=== PATIENT | male | born 1980 | race Caucasian/White ===

== ENCOUNTER 2017-06-12 08:53 | Emergency (ER) | payer OTHER ==
[~2017-06-12] VITALS: Ht 182.9 cm; Wt 88.6 kg
[2017-06-12] MEDS ORDERED: BENA25CA4 PO (09:02)
[2017-06-12] MEDS ORDERED: FAMOTIDINE INJ 20MG/2ML VIAL (S0028) IVP ONE (09:15)
[2017-06-12] MEDS ORDERED: diphenhydrAMINE INJ 50MG/ML VIAL (J1200) IV ONE (09:15)
[2017-06-12] MEDS ORDERED: methylPREDNISolone INJ 125 MG/2 ML VIAL (J2930) IV ONE (09:15)
[2017-06-12] MEDS ORDERED: MEDR4PAK PO (11:32)
[2017-06-12 12:10] VITALS: BP 131/81
[2017-06-12] MEDS ORDERED: EPIP0.3I2 IJ (12:14)
== END 2017-06-12 12:14 | disposition home or self-care (01) ==
LOC: M ED 08:53
DX: T62.8X1A Toxic effect of other specified noxious substances eaten as food, accidental (unintentional), initial encounter (principal); Y92.9 Unspecified place or not applicable; Y93.9 Activity, unspecified; Z79.899 Other long term (current) drug therapy
CPT/HCPCS: 93041; 94760; 96374; 96375; 99285; J1200; J2930

== ENCOUNTER → 2017-07-31 | Outpatient (CLI) | payer OTHER ==
[2017-07-31 13:50] LABS: HEMATOCRIT 46.7 % (42.0-52.0); HEMOGLOBIN 15.9 g/dl (14.0-18.0); MEAN CORPUSCULAR HEMOGLOBIN 29.8 pg (27.0-33.0); MEAN CORPUSCULAR VOLUME 87.5 fl (80.0-96.0); PLATELET COUNT, AUTOMATED 295 10^3/uL (150-450); RED BLOOD COUNT 5.34 10^6/uL (4.30-6.10); RED CELL DISTRIBUTION WIDTH 12.2 % (11.5-14.5); WHITE BLOOD COUNT 5.5 10^3/uL (4.0-10.0)
[2017-07-31 14:21] LABS: ERYTHROCYTE SEDIMENTATION RATE 8 mm/hr (0-15)
[2017-07-31 14:26] LABS: ALBUMIN/GLOBULIN RATIO 1.14 (1.00-1.93); ALKALINE PHOSPHATASE 68 U/L (45-117); ALT/SGPT 33 U/L (12-78); ANION GAP 6 MEQ/L (8-16); AST/SGOT 20 U/L (7-37); BILIRUBIN,TOTAL 0.4 MG/DL (0.2-1.0); BLOOD UREA NITROGEN 16 MG/DL (7-18); CARBON DIOXIDE LEVEL 29 MEQ/L (21-32); CHLORIDE LEVEL 107 MEQ/L (98-107); COMPLEMENT C3 137 MG/DL (90-180); COMPLEMENT C4 22.6 MG/DL (10-40); CREATININE FOR GFR 1.02 MG/DL (0.70-1.30); GLOMERULAR FILTRATION RATE > 60.0 (>60); GLUCOSE, FASTING 97 MG/DL (70-100); POTASSIUM SERUM 4.6 MEQ/L (3.5-5.1); RHEUMATOID FACTOR QUANT < 10.0 IU/ML (0-15.0); SODIUM LEVEL 142 MEQ/L (136-145); THYROID STIMULATING HORMONE 0.937 uIU/ML (0.358-3.740); THYROXINE (T4) 8.4 UG/DL (4.5-12.0); TOTAL PROTEIN 7.5 GM/DL (6.4-8.2)
[2017-07-31 14:29] LABS: CONTROL LINE HPYORI INT CTR LINE PRESENT; H PYLORI QUALITATIVE IgG NEGATIVE (NEGATIVE)
[2017-07-31 14:30] LABS: THYROGLOBULIN ANTIBODY < 15.0 U/ML (<60.0); THYROID PEROXIDASE ANTIBODY < 28.0 U/ML (<60.0)
[2017-07-31 14:32] LABS: TOTAL T3 101.2 NG/DL (60.0-181.0)
== END ==
LOC: M SMT 09:24
DX: T78.2XXA Anaphylactic shock, unspecified, initial encounter (principal); L50.1 Idiopathic urticaria
CPT/HCPCS: 84443

== ENCOUNTER 2017-09-25 14:08 | Outpatient (RCR) | payer OTHER | END 2017-09-28 | LOC: M PT 14:08 | DX: Z51.89 Encounter for other specified aftercare (principal); M67.921 Unspecified disorder of synovium and tendon, right upper arm | CPT/HCPCS: 97162 ==

== ENCOUNTER → 2018-09-10 | Outpatient (CLI) | payer OTHER ==
[~2018-09-10] MED LIST: BENA25CA4 PO; EPIP0.3I2 IJ; MEDR4PAK PO
== END ==
LOC: M OUTALCOH 07:55
PROVIDERS: ATTEND Psychiatry & Neurology Psychiatry
DX: Z03.89 Encounter for observation for other suspected diseases and conditions ruled out (principal)

== ENCOUNTER 2018-09-25 15:55 | Outpatient (RCR) | payer OTHER | END 2018-09-28 | LOC: M OUTALCOH 15:55 | PROVIDERS: ATTEND Psychiatry & Neurology Psychiatry | DX: F10.10 Alcohol abuse, uncomplicated (principal); Z72.0 Tobacco use ==

== ENCOUNTER → 2018-10-28 | Outpatient (RCR) | payer OTHER | LOC: M OUTALCOH 09-30 15:31 | PROVIDERS: ATTEND Psychiatry & Neurology Psychiatry | DX: F10.10 Alcohol abuse, uncomplicated (principal); Z72.0 Tobacco use ==

== ENCOUNTER 2018-11-25 07:50 | Outpatient (RCR) | payer OTHER | END 2018-11-28 | LOC: M OUTALCOH 07:50 | PROVIDERS: ATTEND Psychiatry & Neurology Psychiatry | DX: F10.10 Alcohol abuse, uncomplicated (principal); Z72.0 Tobacco use ==

== ENCOUNTER 2018-12-02 15:48 | Outpatient (RCR) | payer OTHER | END 2018-12-28 | LOC: M OUTALCOH 15:48 | PROVIDERS: ATTEND Psychiatry & Neurology Psychiatry | DX: F10.10 Alcohol abuse, uncomplicated (principal); Z72.0 Tobacco use ==

== ENCOUNTER 2019-09-28 07:54 | Emergency (ER) | payer OTHER ==
[~2019-09-28] VITALS: Ht 182.9 cm; Wt 93.0 kg
[2019-09-28] MEDS ORDERED: ALL10TAB29 (08:00)
[2019-09-28] MEDS ORDERED: NAPR220C14 PO (08:10)
[2019-09-28] MEDS ORDERED: ACET-683 PO (08:10)
[2019-09-28] MEDS ORDERED: IBUP-1022 PO (09:13)
[2019-09-28] MEDS ORDERED: CYCL10TA PO (09:13)
[2019-09-28 09:29] VITALS: BP 152/78
--- NOTE | 2019-09-28 09:58 | REP ---
PELVIS LEFT HIP: THREE VIEWS. HISTORY: Pain times 1 week. Comparison left femur radiographs June 19, 2011 and a left hip radiograph the same date. FINDINGS: AP view of the pelvis shows an intact bony pelvic ring. No sacral or pelvic fracture is seen. Femoral heads are smooth and rounded and hip joint spaces are preserved and unchanged. There are two small accessory ossicles or soft tissue calcifications adjacent to the greater trochanter. These were not apparent previously. There are well corticated and chronic however. 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 No acute bony abnormality. IMPRESSION: Peritrochanteric soft tissue calcifications may reflect calcific tendonitis or bursitis. No acute bony abnormality seen. Electronically Signed by Crow Hernandez MD 09/28/2019 03:33 P
== END 2019-09-28 09:30 | disposition home or self-care (01) ==
LOC: M ED 07:54
DX: M70.72 Other bursitis of hip, left hip (principal); Z88.0 Allergy status to penicillin

== ENCOUNTER 2020-01-14 11:49 | Emergency (ER) | payer OTHER ==
[~2020-01-14] VITALS: Ht 182.9 cm; Wt 91.7 kg
[~2020-01-14 11:49] MED LIST changes: +ACET-683 PO; +CETI-24; +CYCL-707 PO; +IBUP-1022 PO; +NAPR220C14 PO
[2020-01-14] MEDS ORDERED: CLINDAMYCIN 900 MG in IV 1 EA IV ONE (13:00)
[2020-01-14] MEDS ORDERED: LIDOCAINE 1% MDV 20ML VIAL SC ONE (13:00)
[2020-01-14] MEDS ORDERED: CLEO300C2 PO (14:31)
--- NOTE | 2020-01-14 14:53 | REP ---
LEFT SECOND DIGIT, FOUR VIEWS: Four views of the left 2nd digit performed. There is no acute fracture, dislocation or intrinsic bone disease. There soft tissue disruption at the level of the proximal interphalangeal joint anteriorly with no evidence of radiopaque foreign body in that region. Electronically Signed by Stanton Phillip MD 01/17/2020 11:42 P
[2020-01-14 15:06] VITALS: BP 129/81
== END 2020-01-14 15:09 | disposition home or self-care (01) ==
LOC: M ED 11:49
DX: S61.211A Laceration without foreign body of left index finger without damage to nail, initial encounter (principal); S61.213A Laceration without foreign body of left middle finger without damage to nail, initial encounter; W27.0XXA Contact with workbench tool, initial encounter; Y92.009 Unspecified place in unspecified non-institutional (private) residence as the place of occurrence of the external cause; Y93.9 Activity, unspecified; Y99.8 Other external cause status; Z88.0 Allergy status to penicillin; Z79.899 Other long term (current) drug therapy

== ENCOUNTER → 2020-05-02 | Outpatient (REF) | payer OTHER ==
[~2020-05-02] MED LIST changes: +CLEO300C2 PO
== END ==
LOC: CANPREREF → M SFHCPLAZ 08:43
PROVIDERS: ATTEND Internal Medicine
DX: Z13.220 Encounter for screening for lipoid disorders (principal); Z13.1 Encounter for screening for diabetes mellitus; I10 Essential (primary) hypertension; Z53.9 Procedure and treatment not carried out, unspecified reason

== ENCOUNTER → 2020-05-05 | Outpatient (CLI) | payer OTHER | LOC: M RAD 17:47 | PROVIDERS: ATTEND Physician Assistant Medical | DX: S66.829A Laceration of other specified muscles, fascia and tendons at wrist and hand level, unspecified hand, initial encounter (principal); W18.30XA Fall on same level, unspecified, initial encounter; Y92.9 Unspecified place or not applicable ==

== ENCOUNTER → 2020-05-13 | Outpatient (REF) | payer OTHER ==
[2020-05-13 10:54] LABS: HEMATOCRIT 46.8 % (42.0-52.0); HEMOGLOBIN 15.9 g/dl (13.5-17.5); MEAN CORPUSCULAR HEMOGLOBIN 29.5 pg (27.0-33.0); MEAN CORPUSCULAR VOLUME 86.8 fl (80.0-96.0); PLATELET COUNT, AUTOMATED 295 10^3/uL (150-450); RED BLOOD COUNT 5.39 10^6/uL (4.30-6.10)
[2020-05-13 11:11] LABS: HEMOGLOBIN A1c 5.2 %
[2020-05-13 11:30] LABS: ALBUMIN 4.2 GM/DL (3.2-5.2); ALT/SGPT 53 U/L (12-78); BILIRUBIN,TOTAL 0.7 MG/DL (0.2-1.0); BLOOD UREA NITROGEN 13 MG/DL (7-18); CALCIUM LEVEL 9.7 MG/DL (8.5-10.1); CARBON DIOXIDE LEVEL 27 MEQ/L (21-32); CHLORIDE LEVEL 106 MEQ/L (98-107); CHOLESTEROL LEVEL 245 MG/DL (<200); CHOLESTEROL RISK RATIO 5.104 (<5); CREATININE FOR GFR 0.96 MG/DL (0.70-1.30); GLOMERULAR FILTRATION RATE > 60.0 (>60); GLUCOSE, FASTING 90 MG/DL (70-100); HDL CHOLESTEROL 48 MG/DL (>40); LDL CHOLESTEROL 163 MG/DL (<100); NON-HDL-C 197 MG/DL; POTASSIUM SERUM 4.3 MEQ/L (3.5-5.1); SODIUM LEVEL 140 MEQ/L (136-145); TRIGLYCERIDES LEVEL 172 MG/DL (<150)
== END ==
LOC: M SFHCPLAZ 09:13
PROVIDERS: ATTEND Internal Medicine
DX: Z13.220 Encounter for screening for lipoid disorders (principal); Z13.1 Encounter for screening for diabetes mellitus; I10 Essential (primary) hypertension

== ENCOUNTER → 2020-05-13 | Outpatient (CLI) | payer OTHER ==
--- NOTE | 2020-05-13 13:38 | REP ---
INDICATION: LACERATION OF HAND. Severed tendons. Status post left hand tendon repair. COMPARISON: Comparison left index finger radiographs from January 14, 2020 showing a laceration of the palm are aspect of the index finger near the PIP joint.. TECHNIQUE: Axial, coronal and sagittal imaging planes are utilized for MRI of the left hand. T1 and T2 weighted scans are included with without fat saturation. FINDINGS: PIP joint is held in mild flexion compared to the other joints. The flexor tendon is thickened and heterogeneous at the volar aspect of the PIP joint of the index finger. It is also positioned 3-4 mm in a palmar direction from the under surface of the bony elements of the PIP joint of the index finger. On T1 weighted axial and sagittal images of the tendon appear has a discontinuous heterogeneous and disorganized appearance. It is more contiguous and a little smoother on T2 weighted scans where low take signal intensity is seen in continuity. There is no retracted component seen on the T2 weighted scan. There is mild thickening of the same segment of the flexor tendon at the PIP joint of the long finger as well. It is not heterogeneous. There is micrometallic artifact in the volar soft tissues at the PIP joint of the index finger. This is felt to be the site of tendon repair. There is no evidence of carmen foreign body. IMPRESSION: Heterogeneous T1 signal intensity and possible discontinuity or partial discontinuity of the flexor tendon of the index finger at the PIP joint on T1 weighted scans. Fusiform enlargement is seen in this tendon at the tendon repair site on T2 weighted images. On the basis of the T2 weighted scans, I do not believe there is carmen discontinuity of the flexor tendon. Most consistent with expected postsurgical changes. <Electronically signed by Curt Hernandez > 05/13/20 [id number]
== END ==
LOC: M PLARAD 07:29
PROVIDERS: ATTEND Physician Assistant Medical
DX: S66.929A Laceration of unspecified muscle, fascia and tendon at wrist and hand level, unspecified hand, initial encounter (principal); X58.XXXA Exposure to other specified factors, initial encounter; Y92.9 Unspecified place or not applicable

== ENCOUNTER → 2020-08-05 | Outpatient (REF) | payer OTHER | LOC: M SMT 13:29 | PROVIDERS: ATTEND Urology | DX: Z30.2 Encounter for sterilization (principal) ==

== ENCOUNTER → 2022-07-26 | Outpatient (CLI) | payer OTHER | LOC: M RAD 13:53 | PROVIDERS: ATTEND Student in an Organized Health Care Education/Training Program | DX: N50.812 Left testicular pain (principal) ==

== ENCOUNTER → 2022-07-27 | Outpatient (CLI) | payer OTHER ==
[2022-07-27 11:08] LABS: ALKALINE PHOSPHATASE 63 U/L (46-116); ALT/SGPT 42 U/L (7.0-40); AST/SGOT 25 U/L (<34); BILIRUBIN,TOTAL 0.7 MG/DL (0.3-1.2); BLOOD UREA NITROGEN 13 MG/DL (9-23); CALCIUM LEVEL 9.5 MG/DL (8.5-10.1); CARBON DIOXIDE LEVEL 30 MMOL/L (20-31); CHLORIDE LEVEL 104 MMOL/L (98-107); CHOLESTEROL LEVEL 219 MG/DL (<200); CHOLESTEROL RISK RATIO 4.94 (<5); GLOMERULAR FILTRATION RATE > 60.0 (>60); GLUCOSE, FASTING 96 MG/DL (60-100); HDL CHOLESTEROL 44.3 MG/DL (>40); LDL CHOLESTEROL 154.1 MG/DL (<100); NON-HDL-C 175 MG/DL; POTASSIUM SERUM 4.4 MMOL/L (3.5-5.1); SODIUM LEVEL 139 MMOL/L (136-145); TOTAL PROTEIN 7.5 G/DL (5.7-8.2); TRIGLYCERIDES LEVEL 103 MG/DL (<150)
== END ==
LOC: M PLALAB 07:56
PROVIDERS: ATTEND Student in an Organized Health Care Education/Training Program
DX: Z13.220 Encounter for screening for lipoid disorders (principal); I10 Essential (primary) hypertension

== ENCOUNTER → 2023-03-14 | Outpatient (CLI) | payer OTHER | LOC: M SLEEP 20:00 | PROVIDERS: ATTEND Nurse Practitioner Family | DX: R06.83 Snoring (principal) ==

== ENCOUNTER → 2023-04-30 | Outpatient (CLI) | payer OTHER ==
[2023-04-30 12:09] LABS: BLOOD UREA NITROGEN 14 MG/DL (9-23); CALCIUM LEVEL 9.7 MG/DL (8.5-10.1); CARBON DIOXIDE LEVEL 27 MMOL/L (20-31); CHLORIDE LEVEL 103 MMOL/L (98-107); GLOMERULAR FILTRATION RATE > 60.0 (>60); GLUCOSE, FASTING 100 MG/DL (60-100); POTASSIUM SERUM 4.5 MMOL/L (3.5-5.1); SODIUM LEVEL 138 MMOL/L (136-145)
== END ==
LOC: M PLALAB 07:57
PROVIDERS: ATTEND Student in an Organized Health Care Education/Training Program
DX: I10 Essential (primary) hypertension (principal)

== ENCOUNTER → 2024-01-23 | Outpatient (REF) | payer OTHER | LOC: M LAB REF 16:25 | PROVIDERS: ATTEND Physician Assistant | DX: J02.9 Acute pharyngitis, unspecified (principal) ==

== ENCOUNTER → 2024-07-14 | Outpatient (REF) | payer OTHER | LOC: M SFHCPLAZ 20:11 | PROVIDERS: ATTEND Family Medicine | DX: Z00.01 Encounter for general adult medical examination with abnormal findings (principal); Z13.1 Encounter for screening for diabetes mellitus ==

== ENCOUNTER → 2024-07-28 | Outpatient (CLI) | payer OTHER ==
[2024-07-28 10:00] LABS: BASO # 0.1 10^3/uL (0.0-0.2); BASO % 0.9 % (0.0-1.0); EOS # 0.3 10^3/uL (0.0-0.5); EOS % 4.5 % (0.0-3.0); HEMATOCRIT 45.2 % (42.0-52.0); HEMOGLOBIN 15.4 g/dl (13.5-17.5); LYMPH # 1.7 10^3/uL (1.5-5.0); LYMPH % 26.4 % (24.0-44.0); MEAN CORPUSCULAR HEMOGLOBIN 29.7 pg (27.0-33.0); MEAN CORPUSCULAR HGB CONC 34.1 g/dl (32.0-36.5); MEAN CORPUSCULAR VOLUME 87.3 fl (80.0-96.0); MONO # 0.7 10^3/uL (0.0-0.8); NEUTROPHILS # 3.8 10^3/uL (1.5-8.5); NEUTROPHILS % 57.7 % (36.0-66.0); PLATELET COUNT, AUTOMATED 264 10^3/uL (150-450); RED BLOOD COUNT 5.18 10^6/uL (4.30-6.10); WHITE BLOOD COUNT 6.6 10^3/uL (4.0-10.0)
[2024-07-28 10:19] LABS: THYROID STIMULATING HORMONE 0.794 uIU/ML (0.55-4.78); TOTAL 25(OH) VITAMIN D 95.8 NG/ML (20.0-100.0)
[2024-07-28 10:21] LABS: ALBUMIN 3.7 G/DL (3.2-5.2); ALKALINE PHOSPHATASE 62 U/L (40-129); ALT/SGPT 51 U/L (7.0-40); AST/SGOT 25 U/L (<34); BILIRUBIN,TOTAL 0.4 MG/DL (0.3-1.2); BLOOD UREA NITROGEN 17 MG/DL (9-23); CALCIUM LEVEL 9.5 MG/DL (8.5-10.1); CARBON DIOXIDE LEVEL 26 MMOL/L (20-31); CHLORIDE LEVEL 105 MMOL/L (98-107); CHOLESTEROL LEVEL 233 MG/DL (<200); CHOLESTEROL RISK RATIO 4.74 (<5); CREATININE FOR GFR 0.98 MG/DL (0.70-1.30); FREE T4 1.38 NG/DL (0.89-1.76); GLOMERULAR FILTRATION RATE > 60.0 (>60); GLUCOSE, FASTING 108 MG/DL (60-100); HDL CHOLESTEROL 49.1 MG/DL (>40); LDL CHOLESTEROL 147.1 MG/DL (<100); NON-HDL-C 183.9 MG/DL; POTASSIUM SERUM 4.6 MMOL/L (3.5-5.1); SODIUM LEVEL 140 MMOL/L (136-145); TOTAL PROTEIN 7.3 G/DL (5.7-8.2); TRIGLYCERIDES LEVEL 184 MG/DL (<150)
[2024-07-28 10:35] LABS: HEMOGLOBIN A1c 5.5 % (4.0-6.0)
== END ==
LOC: M PLALAB 07:56
DX: Z00.01 Encounter for general adult medical examination with abnormal findings (principal); Z13.1 Encounter for screening for diabetes mellitus

== ENCOUNTER 2024-08-17 14:07 | Inpatient (IN) | payer OTHER ==
[~2024-08-17] VITALS: Ht 182.9 cm; Wt 98.4 kg
[~2024-08-17 14:07] MED LIST changes: -CETI-24; +CETI-24 PO
[2024-08-17] MEDS ORDERED: LISI10TA22 PO (14:45)
[2024-08-17 15:18] LABS: BASO % 0.2 % (0.0-1.0); EOS % 0.1 % (0.0-3.0); HEMATOCRIT 45.4 % (42.0-52.0); HEMOGLOBIN 15.8 g/dl (13.5-17.5); LYMPH # 0.8 10^3/uL (1.5-5.0); LYMPH % 4.1 % (24.0-44.0); MEAN CORPUSCULAR HEMOGLOBIN 29.6 pg (27.0-33.0); MEAN CORPUSCULAR HGB CONC 34.8 g/dl (32.0-36.5); MEAN CORPUSCULAR VOLUME 85.2 fl (80.0-96.0); MONO # 1.1 10^3/uL (0.0-0.8); MONO % 5.5 % (2.0-8.0); NEUTROPHILS # 17.8 10^3/uL (1.5-8.5); NEUTROPHILS % 89.5 % (36.0-66.0); PLATELET COUNT, AUTOMATED 387 10^3/uL (150-450); RED BLOOD COUNT 5.33 10^6/uL (4.30-6.10); WHITE BLOOD COUNT 19.9 10^3/uL (4.0-10.0)
[2024-08-17 15:37] LABS: LIPASE 29 U/L (12-53)
[2024-08-17 15:39] LABS: ALKALINE PHOSPHATASE 65 U/L (40-129); ALT/SGPT 45 U/L (7.0-40); AST/SGOT 18 U/L (<34); BILIRUBIN,DIRECT 0.2 MG/DL (<0.4); BILIRUBIN,TOTAL 0.7 MG/DL (0.3-1.2); BLOOD UREA NITROGEN 13 MG/DL (9-23); CALCIUM LEVEL 10.5 MG/DL (8.5-10.1); CARBON DIOXIDE LEVEL 23 MMOL/L (20-31); CHLORIDE LEVEL 102 MMOL/L (98-107); CREATININE FOR GFR 0.76 MG/DL (0.70-1.30); GLOMERULAR FILTRATION RATE > 60.0 (>60); GLUCOSE, FASTING 149 MG/DL (60-100); POTASSIUM SERUM 4.5 MMOL/L (3.5-5.1); SODIUM LEVEL 139 MMOL/L (136-145); TOTAL PROTEIN 8.1 G/DL (5.7-8.2)
[2024-08-17 17:20] LABS: KETONE, URINE AUTO RFX NEGATIVE (NEGATIVE); LEUKOCYTE ESTERASE UR AUTO RFX NEGATIVE (NEGATIVE); MUCUS, URINE RFX MODERATE (NEGATIVE); NITRITE, URINE AUTO RFX NEGATIVE (NEGATIVE); RBC, URINE AUTO RFX 7 /HPF (0-3); SQUAM EPITHELIAL CELL UR AURFX 0 /HPF (0-6); WBC, URINE AUTO RFX 1 /HPF (0-3)
[2024-08-17] MEDS: ONDANSETRON 4MG 2ML VIAL IV ONE (17:33)
[2024-08-17] MEDS: MORPHINE 4 MG/ML 1ML VIAL IV ONE (17:34)
[2024-08-17] MEDS: NS (Normal Saline) 0.9% 1,000 ML IV ONE ×2 (17:34→22:59)
[2024-08-17] MEDS ORDERED: ISOVUE-370 76% 100ML VIAL As Ordered ONE (17:37)
[2024-08-17] MEDS: MEROPENEM INJ 1 GM in IV 1 EA IV ONE (17:51)
[2024-08-17] MEDS ORDERED: propofoL 200 MG/20 ML VIAL As Ordered ONE (18:42)
[2024-08-17] MEDS ORDERED: fentaNYL 100 MCG/2 ML INJECTION As Ordered ONE (18:42)
[2024-08-17] MEDS ORDERED: MIDAZOLAM INJ 2MG/2ML VIAL As Ordered ONE (18:42)
[2024-08-17] MEDS ORDERED: LIDOCAINE 2% 100MG/5ML SDV (FOR ANES.) As Ordered ONE (18:42)
[2024-08-17] MEDS ORDERED: ONDANSETRON 4MG 2ML VIAL As Ordered ONE (18:43)
[2024-08-17] MEDS ORDERED: ACETAMINOPHEN 1000MG/100ML IV BAG As Ordered ONE (18:43)
[2024-08-17] MEDS ORDERED: ROCURONIUM BROMIDE 50MG/5ML VIAL As Ordered ONE (18:43)
[2024-08-17] MEDS ORDERED: SUGAMMADEX SODIUM 500 MG/5 ML VIAL (BRIDION) As Ordered ONE (18:43)
[2024-08-17] MEDS ORDERED: KETOROLAC 60MG 2ML VIAL As Ordered ONE (18:43)
[2024-08-17] MEDS ORDERED: ACETAMINOPHEN 325 MG TAB PO PRN (20:30)
[2024-08-17] MEDS ORDERED: oxyCODONE 5MG TAB PO PRN (20:30)
[2024-08-17] MEDS ORDERED: MORPHINE 2 MG/ML 1ML VIAL IV PRN (20:30)
[2024-08-17] MEDS ORDERED: MEPERIDINE 50 MG/ML 1ML VIAL As Ordered ONE (20:32)
[2024-08-17] MEDS ORDERED: MOM 30ML SUSPENSION UDC PO PRN (21:25)
[2024-08-17] MEDS ORDERED: MAALOX 30 ML SUSP *UDC PO PRN (21:25)
[2024-08-17 22:10] VITALS: BP 129/73; TEMP 97.8; O2SAT 97
[2024-08-17 22:55] VITALS: BP 117/71; TEMP 98.3; O2SAT 94
[2024-08-17] MEDS: NS (Normal Saline) 0.9% 1,000 ML IV SCH (22:58)
[2024-08-17 23:48] VITALS: BP 114/67; TEMP 97.5; O2SAT 95
[2024-08-17 23:55] VITALS: O2SAT 96
[2024-08-17] MEDS: metroNIDAZOLE (FLAGYL) 500MG TABLET PO SCH (23:59)
[2024-08-18 00:54] VITALS: BP 105/55; TEMP 98.1; O2SAT 94
[2024-08-18 01:53] VITALS: BP 108/57; TEMP 98.3; O2SAT 96
[2024-08-18 02:53] VITALS: BP 104/65; TEMP 97.9; O2SAT 95
[2024-08-18 04:07] VITALS: BP 113/72; TEMP 98.4; O2SAT 96
[2024-08-18] MEDS ORDERED: EPIN0.3I11 IM (04:11)
[2024-08-18] MEDS: LevoFLOXacin 750 MG TABLET PO SCH (06:23)
[2024-08-18 06:41] LABS: HEMATOCRIT 39.4 % (42.0-52.0); MEAN CORPUSCULAR HEMOGLOBIN 30.1 pg (27.0-33.0); MEAN CORPUSCULAR HGB CONC 34.8 g/dl (32.0-36.5); MEAN CORPUSCULAR VOLUME 86.6 fl (80.0-96.0); PLATELET COUNT, AUTOMATED 320 10^3/uL (150-450); RED BLOOD COUNT 4.55 10^6/uL (4.30-6.10); WHITE BLOOD COUNT 11.2 10^3/uL (4.0-10.0)
[2024-08-18 06:43] LABS: HEMOGLOBIN 13.7 g/dl (13.5-17.5)
[2024-08-18] MEDS ORDERED: OMEG-28 PO (06:47)
[2024-08-18] MEDS ORDERED: CHOL25TA2 PO (06:47)
[2024-08-18] MEDS ORDERED: HOME MED LIST COMPLETE! XX SCH (06:50)
[2024-08-18 07:14] LABS: ALBUMIN 3.2 G/DL (3.2-5.2); ALKALINE PHOSPHATASE 53 U/L (40-129); ALT/SGPT 33 U/L (7.0-40); AST/SGOT 15 U/L (<34); BILIRUBIN,TOTAL 0.6 MG/DL (0.3-1.2); BLOOD UREA NITROGEN 15 MG/DL (9-23); CARBON DIOXIDE LEVEL 25 MMOL/L (20-31); CHLORIDE LEVEL 104 MMOL/L (98-107); CREATININE FOR GFR 0.89 MG/DL (0.70-1.30); GLOMERULAR FILTRATION RATE > 60.0 (>60); GLUCOSE, FASTING 128 MG/DL (60-100); MAGNESIUM LEVEL 2.1 MG/DL (1.8-2.4); POTASSIUM SERUM 4.6 MMOL/L (3.5-5.1); SODIUM LEVEL 138 MMOL/L (136-145); TOTAL PROTEIN 6.9 G/DL (5.7-8.2)
[2024-08-18 08:10] VITALS: BP 117/67; TEMP 99.1; O2SAT 96
[2024-08-18] MEDS: DOCUSATE SODIUM 100MG CAPSULE PO SCH (08:34)
[2024-08-18] MEDS ORDERED: OXYC-517 PO (11:40)
[2024-08-18] MEDS ORDERED: METR-265 PO (11:40)
[2024-08-18] MEDS ORDERED: LEVO75TAB PO (11:40)
[2024-08-18 12:15] VITALS: BP 128/73; TEMP 97.9; O2SAT 96
== END 2024-08-18 13:31 | disposition home or self-care (01) | DRG 225 ==
LOC: M ED 14:07 → M SDC 20:10 → M MS4PR 22:00 → M SDC 22:01 → M MS4PR 22:02
PROVIDERS: ADMIT Student in an Organized Health Care Education/Training Program; ATTEND Student in an Organized Health Care Education/Training Program
PROC: 8E0W4CZ Robotic Assisted Procedure of Trunk Region, Percutaneous Endoscopic Approach (ICD-10-PCS; 2024-08-17)
PROC: 0DTJ4ZZ Resection of Appendix, Percutaneous Endoscopic Approach (ICD-10-PCS; principal; 2024-08-17 18:24)
DX: K35.80 Unspecified acute appendicitis (principal); I10 Essential (primary) hypertension; G47.33 Obstructive sleep apnea (adult) (pediatric); E78.5 Hyperlipidemia, unspecified; Z87.891 Personal history of nicotine dependence; Z88.0 Allergy status to penicillin

== ENCOUNTER → 2025-02-01 | Outpatient (CLI) | payer OTHER ==
[~2025-02-01] MED LIST changes: +CHOL25TA2 PO; +EPIN0.3I11 IM; +LEVO75TAB PO; +LISI10TA22 PO; +METR-265 PO; +OMEG-28 PO; +OXYC-517 PO
== END ==
LOC: M SLEEP 20:00
PROVIDERS: ATTEND Physician Assistant
DX: R06.83 Snoring (principal); G47.33 Obstructive sleep apnea (adult) (pediatric)

== ENCOUNTER → 2025-02-09 | Outpatient (REF) | payer OTHER | LOC: M SFHCPLAZ 15:37 | PROVIDERS: ATTEND Family Medicine | DX: Z53.9 Procedure and treatment not carried out, unspecified reason (principal) ==

== ENCOUNTER → 2025-03-09 | Outpatient (CLI) | payer OTHER ==
[~2025-03-09] MED LIST changes: -IBUP-1022 PO; +IBUP600T42 PO
[2025-03-09 10:17] LABS: BASO # 0.0 10^3/uL (0.0-0.2); BASO % 0.7 % (0.0-1.0); EOS # 0.2 10^3/uL (0.0-0.5); EOS % 2.9 % (0.0-3.0); LYMPH # 1.6 10^3/uL (1.5-5.0); LYMPH % 29.4 % (24.0-44.0); MONO # 0.5 10^3/uL (0.0-0.8); MONO % 9.7 % (2.0-8.0); NEUTROPHILS # 3.1 10^3/uL (1.5-8.5); NEUTROPHILS % 56.9 % (36.0-66.0); PLATELET COUNT, AUTOMATED 201 10^3/uL (150-450)
[2025-03-09 10:34] LABS: ESTIMATED AVERAGE GLUCOSE 117.0 MG/DL (60-110)
[2025-03-09 10:46] LABS: ALT/SGPT 53 U/L (7.0-40); AST/SGOT 32 U/L (<34); CALCIUM LEVEL 9.8 MG/DL (8.5-10.1); CARBON DIOXIDE LEVEL 26 MMOL/L (20-31); CHLORIDE LEVEL 104 MMOL/L (98-107); CHOLESTEROL LEVEL 248 MG/DL (<200); CHOLESTEROL RISK RATIO 4.41 (<5); CREATININE FOR GFR 0.93 MG/DL (0.70-1.30); FREE T4 1.38 NG/DL (0.89-1.76); GLOMERULAR FILTRATION RATE > 90.0 (>60); LDL CHOLESTEROL 157.0 MG/DL (<100); NON-HDL-C 191.8 MG/DL; POTASSIUM SERUM 4.4 MMOL/L (3.5-5.1); SODIUM LEVEL 139 MMOL/L (136-145); TRIGLYCERIDES LEVEL 174 MG/DL (<150)
== END ==
LOC: M PLALAB 07:34
DX: I10 Essential (primary) hypertension (principal); G47.33 Obstructive sleep apnea (adult) (pediatric); Z13.1 Encounter for screening for diabetes mellitus; E78.2 Mixed hyperlipidemia

== ENCOUNTER → 2025-05-25 | Outpatient (REF) | payer OTHER | LOC: M SFHCPLAZ 16:07 | PROVIDERS: ATTEND Family Medicine | DX: M25.511 Pain in right shoulder (principal); G47.33 Obstructive sleep apnea (adult) (pediatric); E78.00 Pure hypercholesterolemia, unspecified; Z53.9 Procedure and treatment not carried out, unspecified reason ==